=== PATIENT | female | born 1945 ===

== ENCOUNTER → 2018-11-21 21:23 | Outpatient (ROUT) | payer MEDICARE, SELFPAY ==
[2018-11-21 22:50] LABS: Hep C Virus Ab w/Reflex Quant NEGATIVE s/c (NEGATIVE)
== END ==
PROVIDERS: Visit Provider Family Medicine
DX: Z00.00 Encounter for general adult medical examination without abnormal findings (principal); E03.9 Hypothyroidism, unspecified; E78.5 Hyperlipidemia, unspecified
CPT/HCPCS: 36415; 86803